=== PATIENT | male | born 1940 | race American Indian/Alaskan Native ===

== ENCOUNTER 2017-06-03 08:43 | Outpatient (CLI) | payer MEDICARE, OTHER ==
[2017-06-03 09:27] LABS: Blood Urea Nitrogen 13 mg/dL (9-20)
[2017-06-03] MEDS ORDERED: NACL ONE (09:36)
--- NOTE | 2017-06-03 11:13 | Cat Scan Report ---
CT CHEST WITH CONTRAST: HISTORY: Short of breath. COMPARISON: None. TECHNIQUE: Helical CT in 1.25mm intervals following IV contrast. Sagittal and coronal reformatted images. FINDINGS: Thyroid gland: Normal. Tracheobronchial tree: Unremarkable. Esophagus: Normal. Heart: Normal. Pericardium: Normal. Mediastinum: There are multiple enlarged lymph nodes in the left hilar region and subcarinal chain. The largest lymph node in the subcarinal region measures 3.9 x 3.2 cm. Lung Mejía: There is a large left pleural effusion which compresses 80-90% of the left lung. Left pleural thickening and nodularity is consistent with left pleural metastasis. There is mediastinal shift to the right. There are multiple masses suggested in the collapsed left lung. Approximately 7 masses are identified throughout the right lung. One of the largest masses measures 3.6 x 3.1 cm in the right upper lobe. Musculoskeletal: Sclerotic lesion involving the T11 vertebral body and right pedicles measures up to 3.7 x 2.3 cm. There is also an ill-defined sclerotic area in the L1 vertebral body measuring up to 2.8 cm. A sclerotic lesion is identified in the lateral left eighth rib. IMPRESSION: A metastatic process is suspected. There are multiple bilateral pulmonary masses and nodules. A large left pleural effusion compresses most of the left lung. Left pleural metastasis are identified. Mediastinal adenopathy. Bony lesions at T11, L1 and the left eighth rib.
== END 2017-06-03 08:44 | disposition home or self-care (01) ==
LOC: CT 08:43
DX: C78.2 Secondary malignant neoplasm of pleura (principal); R59.9 Enlarged lymph nodes, unspecified; J90 Pleural effusion, not elsewhere classified; M89.9 Disorder of bone, unspecified
CPT/HCPCS: 36415; 71260; 82565; 84520; Q9967

== ENCOUNTER 2017-06-08 07:31 | Day surgery (SDC) | payer MEDICARE, OTHER ==
[2017-06-08 09:04] LABS: Partial Thromboplastin Time 37.7 Sec. (24.2-36.6)
--- NOTE | 2017-06-08 10:50 | Ultrasound Report ---
ULTRASOUND THORACENTESIS HISTORY: Left pleural effusion. DESCRIPTION OF PROCEDURE: Informed consent was obtained. Sterile technique was utilized. 1% lidocaine for skin anesthesia. Using ultrasound guidance, a 5 German centesis needle was advanced into a large left pleural effusion. There was spontaneous return bloody red fluid. 2550 cc were aspirated. 120 cc was saved for laboratory analysis if needed. The patient tolerated the procedure well. A followup chest x-ray was ordered. IMPRESSION: Successful ultrasound-guided left thoracentesis. 2550 cc of bloody fluid was removed.
--- NOTE | 2017-06-08 11:56 | Short Stay Summary ---
Short Stay Documentation Date of service: 06/08/17 - History Principal diagnosis: left pleural effusion H&P: obtained from office Past Medical History: cancer - Allergies and Medications Current Medications: Allergies No Known Allergies Allergy (Unverified 06/03/17 08:46) Home Medications Medication Instructions Recorded Confirmed Last Taken Type Aspirin EC [Aspirin Enteric Coated 81 mg PO QDAY 06/08/17 06/08/17 06/07/17 History TAB] Calcium Carbonate [Calcium] 600 mg PO BID 06/08/17 06/08/17 06/07/17 History Enzalutamide (Nf) [Xtandi (Nf)] 160 mg PO QDAY 06/08/17 06/08/17 06/07/17 History Lisinopril [Zestril TAB] 40 mg PO QDAY 06/08/17 06/08/17 06/07/17 History Metoprolol [Lopressor] 25 mg PO QDAY 06/08/17 06/08/17 06/07/17 History Pravastatin [Pravachol] 20 mg PO QHS 06/08/17 06/08/17 06/07/17 History amLODIPine [Norvasc] 10 mg PO QDAY 06/08/17 06/08/17 06/07/17 History - Physical exam General appearance: no acute distress Lungs: Other (decreased air movement on left) - Brief post op/procedure progress note Date of procedure: 06/08/17 Pre-op diagnosis: left plueral effusion Post-op diagnosis: other (left hemothorax) Anesthesia: local Findings: see report Surgeon: JOSE HERNÁNDEZ Estimated blood loss: none Pathology: list (120cc) Specimen disposition: to lab Condition: stable - Disposition Condition at discharge: Good Disposition: [id number]-01 TO HOME OR SELFCARE Short Stay Discharge Plan Follow up with: GENNARO WHITNEY MD [Primary Care Provider] - 7 Days
--- NOTE | 2017-06-08 12:19 | XRay Report ---
AP CHEST: HISTORY: Left pleural effusion, shortness of breath, recent left thoracentesis Recent left ultrasound guided thoracentesis was performed. 2550 cc of bloody fluid was removed. There is near-complete evacuation of the left pleural effusion. No pneumothorax. There is a large area of consolidation throughout the lingula which could represent atelectasis, mass or infiltrate. There are 2 masses lateral to the right hilum measuring 1 cm and 2 cm. Mild cardiomegaly is suspected. IMPRESSION: No pneumothorax. Decreased left pleural effusion. Probable bilateral lung masses.
[2017-06-08 12:20] VITALS: BP 140/83
== END 2017-06-08 12:45 | disposition home or self-care (01) ==
LOC: CATHLABREC 07:31
DX: J90 Pleural effusion, not elsewhere classified (principal); Z79.82 Long term (current) use of aspirin; Z79.899 Other long term (current) drug therapy; Z85.89 Personal history of malignant neoplasm of other organs and systems
CPT/HCPCS: 32555; 36415; 71045; 85610; 85730; 88112; 88305; 88342

== ENCOUNTER 2017-09-29 10:07 | Outpatient (CLI) | payer MEDICARE, OTHER ==
[2017-09-29 10:56] LABS: Blood Urea Nitrogen 19 mg/dL (9-20)
--- NOTE | 2017-09-29 13:13 | Cat Scan Report ---
FINAL REPORT EXAM: CT CHEST W CON HISTORY: PROSTATE CANCER LUNG METS LUNG NODULE TECHNIQUE: A CT of the chest was performed from thoracic inlet to diaphragm. IV contrast was administered. Axial images and coronal and sagittal reformatted images were obtained. PRIORS: None. FINDINGS: There is nodular pleural thickening throughout the left aliyah thorax which is consistent with pleural metastatic disease. There is a small to moderate left pleural effusion. There are innumerable metastatic pulmonary nodules/masses bilaterally. There is some superimposed hazy ground-glass infiltrate versus atelectasis in the left lower lobe. There is no pneumothorax seen. There is abnormal mediastinal lymphadenopathy. Most notable is a very large sub carinal lymph node measuring 4.3 x 4.4 by 4.7 cm. There is no pneumothorax seen. There are coronary artery atherosclerotic calcifications. Upper abdominal images demonstrate multiple hepatic metastatic lesions. There is some nonspecific thickening and nodularity of the left adrenal gland. There are osteoblastic lesions involving T11 and L1. There are several osteoblastic rib lesions seen. IMPRESSION: Extensive bilateral pulmonary metastatic disease, mediastinal metastatic lymphadenopathy, left-sided pleural metastatic disease and hepatic metastases. Scattered osteoblastic bony metastatic disease as well. Small to moderate left pleural effusion.
== END 2017-09-29 10:08 | disposition home or self-care (01) ==
LOC: CT 10:07
DX: C61 Malignant neoplasm of prostate (principal); C78.7 Secondary malignant neoplasm of liver and intrahepatic bile duct; R91.1 Solitary pulmonary nodule; J90 Pleural effusion, not elsewhere classified; I25.10 Atherosclerotic heart disease of native coronary artery without angina pectoris; J92.9 Pleural plaque without asbestos; F17.210 Nicotine dependence, cigarettes, uncomplicated; I10 Essential (primary) hypertension
CPT/HCPCS: 36415; 71260; 82565; 84520; Q9967